=== PATIENT | male | born 1945 | race Caucasian/White ===

== ENCOUNTER 2016-11-03 10:38 | Emergency (ER) | payer MEDICARE, OTHER ==
--- NOTE | 2016-11-14 14:42 | ER ---
ADMIT: 11/03/2016 RM/LOC: ER [facility] MR#: [id number] [id number] [place], [place] [address] TANI ROMAN [address] [place] [address] Emergency Room Report SEX: M AGE: 71 : 1945 DATE: 11/03/2016 ADDENDUM: CHIEF COMPLAINT: Low magnesium. HISTORY OF PRESENT ILLNESS: This is a 71-year-old, who had an ileostomy. 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 He has had issues with hypomagnesium. He had magnesium yesterday and was scheduled to have it today and tomorrow. He was sent here just because he just seemed a little bit more dizzy, had an episode of a low blood pressure, so they sent him to the ER. COURSE IN THE EMERGENCY ROOM: He did receive magnesium when he arrived. He was due to have it at 1000 hours. We checked his magnesium level and it was 2.0. Electrolytes were normal except for potassium low at 3.6, which seems like that is where he has been holding. CBC was normal except for hemoglobin 9.6, which is chronic for him also. He did receive some normal saline here as well. He feels okay to go back to the [facility]. IMPRESSION: 1. Hypomagnesium secondary to diarrhea, improved in the ER. 2. Hypokalemia. 3. Anemia, chronic. DISPOSITION: Stable at discharge. I am having him hold magnesium tomorrow if they have normal magnesium level by labs. VALENTÍN Guzmán / Brandon Bashir MD / modl JOB #: [id number] CC: Brandon Bashir MD, Attending Physician [facility] Physician, Family Physician
== END 2016-11-03 13:20 | disposition home or self-care (01) ==
LOC: ER 10:38
DX: E83.42 Hypomagnesemia (principal); R19.7 Diarrhea, unspecified; E87.6 Hypokalemia; D64.9 Anemia, unspecified; I10 Essential (primary) hypertension; Z90.49 Acquired absence of other specified parts of digestive tract; Z93.6 Other artificial openings of urinary tract status; Z93.2 Ileostomy status; Z88.1 Allergy status to other antibiotic agents; Z88.8 Allergy status to other drugs, medicaments and biological substances; Z79.01 Long term (current) use of anticoagulants; Z79.899 Other long term (current) drug therapy

== ENCOUNTER 2016-11-27 11:50 | Inpatient (IN) | payer MEDICARE ==
[~2016-11-27] VITALS: Ht 177.8 cm; Wt 84.1 kg
--- NOTE | 2016-11-29 08:16 | HP ---
ADMIT: 11/27/2016 RM/LOC: 522 [facility] MR#: [id number] [id number] [address] [address] [place], [place] [address] TANI ROMAN [address] [place] [address] History and Physical SEX: M AGE: 71 : 1945 DATE OF SERVICE: HISTORY OF PRESENT ILLNESS: He is a . He was transferred here from the [facility] here in [place] with abdominal pain, leukocytosis, and hypokalemia. He has past medical history of urinary bladder cancer, status post urostomy complicated by acute abdomen secondary to breakdown of suture with evidence of sepsis, had an ileostomy on 10/11/2016. He then had an ileostomy takedown and revision 11 days ago [facility] pain, chronic severe diarrhea that has been ongoing postoperatively status post ileostomy revision. [facility]. His white count was 15.8, hemoglobin 11.4, platelet count 251,000. Lactic acid 1.3. Sodium 142, potassium 2.7, BUN and creatinine 20 and 1.0, blood sugar 125, cholesterol 152, triglycerides 172. EKG shows sinus tach. CT shows 4.4 x 6.5 cm loculated fluid collection in the low abdomen. He, at this time, is admitted for further evaluation and care. PAST MEDICAL HISTORY: Includes history of allergic rhinitis; cataracts; hypertension; hyperlipidemia; reflux disease; history of TIA, on Plavix therapy; and history of neuralgias. SOCIAL HISTORY: He lives with his . No tobacco or alcohol use. CURRENT MEDICATIONS: As followed. He is on; 1. Tylenol three tablets every 6 hours p.r.n. 2. Plavix 75 mg one tablet daily. 3. Ferrous sulfate 324 mg one tablet t.i.d. 4. Gabapentin 400 mg one tablet q.i.d. 5. Ipratropium bromide 0.062 two sprays in nostril b.i.d. 6. Lidocaine patch to skin daily for 12 hours and off 12 hours. 7. Magnesium oxide. 8. Multivitamin. 9. Protonix 40 mg daily. 10.Phenylephrine one suppository in rectum t.i.d. p.r.n. 11.Cetirizine 10 mg one daily. ADMIT: 11/27/2016 RM/LOC: 522 [facility] MR#: [id number] [address] [address] [address] [place] [address] History and Physical SEX: M AGE: 71 : 1945 ALLERGIES: TO AMOXICILLIN, CEPHALEXIN, CIPRO, STATINS, COLESTIPOL, ZETIA, AND GEMFIBROZIL. ASSESSMENT AND PLAN: We at this time will admit to [facility]. We will obtain medical records from the [facility] for further assessment. We will plan abscess drainage. Broad-spectrum antibiotic coverage with meropenem and vancomycin. I will ask Intervention Radiology to see for drainage of abscess. In addition, we will have Dr. Cee follow. Chronic underlying diarrhea status post procedure, we will check for C. difficile. Hypokalemia, we will continue to follow. Continue home medications as appropriate. Mayra Henderson MD/ sydnie JOB #: [id number] CC: Mayra Henderson, Attending Physician [facility] Physician, Family Physician
[2016-11-30] MEDS ORDERED: ZYRTEC DPS10 MG PO (18:25)
[2016-11-30] MEDS ORDERED: FEOSOL-DPS325 MG PO (18:25)
[2016-11-30] MEDS ORDERED: NEURONTIN DPS400 MG PO (18:25)
[2016-11-30] MEDS ORDERED: PROTONIX40 MG PO (18:26)
[2016-11-30] MEDS ORDERED: IMODIUM DPS2 MG PO (18:26)
[2016-11-30] MEDS ORDERED: THERA-M1 EACH PO (18:26)
[2016-11-30] MEDS ORDERED: LIDOPATCH1 EACH TD (18:27)
[2016-11-30] MEDS ORDERED: PLAVIX75 MG PO (18:27)
[2016-11-30] MEDS ORDERED: QUESTRAN DPS4 GM PO (18:27)
[2016-11-30] MEDS ORDERED: TYLENOL #3 DPS1 TAB PO (18:28)
[2016-11-30] MEDS ORDERED: INVANZ1 G1 IV (18:28)
--- NOTE | 2016-12-06 14:26 | ER ---
ADMIT: 11/27/2016 RM/LOC: ER [facility] MR#: [id number] [address] [address] TANI ROMAN [address] [place] [address] Emergency Room Report SEX: M AGE: 71 : 1945 DATE: 11/27/2016 ADDENDUM: CHIEF COMPLAINT: Elevated white count and abdominal pain. HISTORY OF PRESENT ILLNESS: This 71-year-old male, who has been having lower abdominal pain for the last 3 days. [facility], they did a CBC which showed elevated white count of 15, low potassium in the 2s then sent him over to the ER to be evaluated. I did a CT of his abdomen that showed an abdominal abscess, started him on vancomycin here down in the emergency room. I also started potassium IV 40 mEq given over 4 hours. CLINICAL IMPRESSION: 1. Abdominal abscess. 2. Hypokalemia. VALENTÍN Guzmán / Raffy Copeland MD / sydnie JOB #: [id number] CC: Raffy Copeland MD, Attending Physician [facility] Physician, Family Physician
--- NOTE | 2016-12-07 07:52 | DS ---
ADMIT: 11/27/2016 RM/LOC: 522 [facility] MR#: [id number] [address] [address] TANI ROMAN [address] [place] [address] General Discharge Summary SEX: M AGE: 71 : 1945 ADMISSION DATE: 11/27/2016 DISCHARGE DATE: 11/30/2016 DISCHARGE DIAGNOSES: 1. Pelvic abscess with placement of drain. 2. Sepsis. 3. Anemia. 4. Hypokalemia. 5. Hypophosphatemia. 6. Hypomagnesium. 7. History of urinary bladder cancer, status post placement of ileal conduit. 8. History of ileostomy with takedown. 9. Severe ongoing diarrhea, postop from ileal conduit surgery and complications of multiple surgeries. HISTORY OF PRESENT ILLNESS: Documented in our [facility] and [facility]. LABORATORY AND RADIOGRAPHIC ASSESSMENT: On admission; white count was 6.6, hemoglobin 9.3, platelets 146,000. UA showed 2+ ketones, blood 3+, leukocytes 2+. His serum sodium on admission was 144, potassium 2.7, BUN and creatinine 16 and 0.8. Albumin of 2.7. LFTs were normal. Phosphorus of 1.9. Near the time of discharge, his potassium was 3.9, sodium of 143, BUN and creatinine 5 and 0.7. Magnesium level 1.8, corrected from 1.2. Blood culture showed no growth. Urine culture showed wbc's many in pairs and chains, Gram-positive cocci and Gram-negative rods. Urine culture showed no growth. Culture from his abscess showed E. coli many, Bacteroides fragilis many, few to moderate additional Gram-positive organisms, no MRSA or VRE isolated. CT of abdomen and pelvis showed inflammatory changes in the lower pelvis loculated, fluid collection seen in the midline anteriorly measuring 4.4 x 6.3 cm in size. It is difficult to differentiate from small bowel. Interventional Radiology; placement of drain 11/28/2016. Chest x-ray showed negative pathology. HOSPITAL COURSE: This is a very nice 71-year-old white gentleman, who has had recurrent hospitalizations at the [facility] in [place], presented to the [facility] here postoperatively with persistent ongoing diarrhea, hypotension, weakness, leukocytosis. He was noted to be hypokalemic as well as low magnesium and low phosphorus during this hospitalization. On admission, aggressive fluid volume resuscitation was undertaken. He was placed on broad-spectrum antibiotics. We did ask Infection Disease to see and evaluate. He underwent further assessment with placement of a drainage tube. He continued to do well. We aggressively treated his diarrhea with cholestyramine and codeine, with actual improvement in stool quantity. He subsequently was discharged home with followup through Dr. Albrecht as well as follow up with the [facility]. He will have followup through Dr. Albrecht' clinic as well as follow up with Dr. Cee. DISCHARGE MEDICATIONS: At the time of discharge, he was on: 1. Claritin to take as directed. 2. Iron supplementation. ADMIT: 11/27/2016 RM/LOC: 522 [facility] MR#: [id number] [address] [place] [id number] TANI ROMAN [address] [place] [address] General Discharge Summary SEX: M AGE: 71 : 1945 3. Imodium. 4. Neurontin 400 mg q.i.d. 5. Plavix 75 mg daily. 6. Protonix 40 mg daily. 7. Questran 4 g b.i.d. with meals. 8. Therapeutic vitamin. 9. Tylenol No.3 with codeine two tablets p.o. b.i.d. 10.Lidoderm patch. Follow up with Dr. Albrecht in one week. Continue outpatient IV antibiotic therapy. He was discharged in stable condition. His outpatient antibiotic was ertapenem 1 g IV daily. Mayra Henderson MD/ sydnie JOB #: [id number] CC: Mayra Henderson MD, Attending Physician . [facility] Physician Naman Albrecht MD . [facility]
--- NOTE | 2016-12-12 09:47 | CO ---
ADMIT: 11/27/2016 RM/LOC: 522 [facility] MR#: [id number] [address] [address] TANI ROMAN [address] [place] [address] Consultation SEX: M AGE: 71 : 1945 DATE OF CONSULTATION: 11/28/2016 ATTENDING PHYSICIAN: Mayra Henderson CONSULTING PHYSICIAN: Leeann Cee MD REASON FOR CONSULT: Antibiotic management. Thank you, Dr. Henderson, for the consult and involving me in this patient's care. HISTORY OF PRESENT ILLNESS: Mr. Roman is a 71-year-old who presented to the ER yesterday with abdominal pain and leukocytosis. CT scan of the abdomen and pelvis was done, which showed a 4.4 x 6.3 cm loculated fluid collection in lower pelvis. He has history of bladder cancer status post urostomy. He also had an ileostomy in September of 2016 and underwent a takedown and revision recently. He also had chronic severe diarrhea since August and his C. difficile PCR was negative. Today he is scheduled to go for IR drainage of the abscess. He denies any fevers or chills at home, but did complain of abdominal pain and diarrhea. PAST MEDICAL HISTORY: 1. Bladder cancer. 2. Allergic rhinitis. 3. Hyperlipidemia. 4. Gastroesophageal reflux disease. 5. History of TIA. 6. History of cataract. 7. Hypertension. 8. Neuralgia. SOCIAL HISTORY: He lives at home with his . Denies any smoking, alcohol, or recreational drug use. ALLERGIES: TO CIPROFLOXACIN AND PENICILLIN WHICH GIVES HIM RASH. CURRENT MEDICATIONS: 1. Claritin. 2. Feosol. 3. Klor-Con. 4. Neurontin. 5. Magnesium oxide. 6. Meropenem 1 g every 8 hours. 7. Vancomycin 1.25 g every 12 hours. REVIEW OF SYSTEMS: Ten-point review of systems negative except as mentioned in HPI. PHYSICAL EXAMINATION: VITAL SIGNS: Current temperature 98.2, heart rate 95, ADMIT: 11/27/2016 RM/LOC: 522 [facility] MR#: [id number] [address] [address] TANI ROMAN [address] [place] [address] Consultation SEX: M AGE: 71 : 1945 respirations 20, blood pressure 118/79, and 90% on room air. GENERAL: No acute distress. HEENT: Head, normocephalic and atraumatic. Extraocular movements intact. CHEST: Clear to auscultation bilaterally anteriorly. CARDIOVASCULAR: S1, S2 heard. Regular rate and rhythm. ABDOMEN: Soft. Mild diffuse tenderness. His right lower quadrant urostomy bag with clear urine. PSYCH: Normal affect. Memory intact. SKIN: Rash noted on exposed skin. DATA REVIEW: CBC today shows white count of 6.8, hemoglobin 9.1, and platelets of 146. CMP shows potassium of 2.7 and creatinine 0.8. Normal AST and ALT. Blood cultures are pending at this time. ASSESSMENT AND PLAN: 1. Abdominal abscess. Plan for IR drainage today. Continue meropenem and vancomycin until then. We will narrow antibiotics once culture results are available. 2. Bladder cancer status post urostomy. We will also check urinalysis and culture. 3. Chronic diarrhea, C. difficile negative. 4. Transient ischemic attack. 5. Hypokalemia. Thank you for the consult and I will continue to follow the patient. Leeann Cee MD/ sydnie JOB #: [id number] CC: Mayra Henderson, Attending Physician [facility]-[place] Physician, Family Physician
== END 2016-11-30 16:45 | disposition home or self-care (01) | DRG 862 ==
LOC: ER 11:50 → 5MS 16:15
PROVIDERS: ADMIT Internal Medicine
PROC: 0W9G30Z Drainage of Peritoneal Cavity with Drainage Device, Percutaneous Approach (ICD-10-PCS; principal; 2016-11-28)
DX: T81.4XXA Infection following a procedure, initial encounter (principal); K65.1 Peritoneal abscess; A41.9 Sepsis, unspecified organism; I95.9 Hypotension, unspecified; E83.42 Hypomagnesemia; E83.39 Other disorders of phosphorus metabolism; E87.6 Hypokalemia; I10 Essential (primary) hypertension; B96.20 Unspecified Escherichia coli [E. coli] as the cause of diseases classified elsewhere; J30.9 Allergic rhinitis, unspecified; E78.5 Hyperlipidemia, unspecified; D64.9 Anemia, unspecified; K59.1 Functional diarrhea; K21.9 Gastro-esophageal reflux disease without esophagitis; Z86.73 Personal history of transient ischemic attack (TIA), and cerebral infarction without residual deficits; Z79.02 Long term (current) use of antithrombotics/antiplatelets; Z85.51 Personal history of malignant neoplasm of bladder; Z93.2 Ileostomy status

== ENCOUNTER → 2016-12-12 | Outpatient (CLI) | payer MEDICARE ==
[~2016-12-12] MED LIST: FEOSOL-DPS325 MG PO; IMODIUM DPS2 MG PO; INVANZ1 G1 IV; LIDOPATCH1 EACH TD; NEURONTIN DPS400 MG PO; PLAVIX75 MG PO; PROTONIX40 MG PO; QUESTRAN DPS4 GM PO; THERA-M1 EACH PO; TYLENOL #3 DPS1 TAB PO; ZYRTEC DPS10 MG PO
== END | disposition home or self-care (01) ==
LOC: RAD.S 10:00
PROC: BW11YZZ Fluoroscopy of Abdomen and Pelvis using Other Contrast (ICD-10-PCS; principal; 2016-12-12)
DX: K65.1 Peritoneal abscess (principal)